=== PATIENT | male | born 1985 | race Caucasian/White ===

== ENCOUNTER 2018-01-11 11:52 | Emergency (ER) | payer BC, OTHER ==
[2018-01-11] MEDS ORDERED: ACETAMINOPHEN TAB 500 MG TAB PO STA (12:16)
[2018-01-11] MEDS ORDERED: IBUPROFEN 600 MG TAB PO STA (12:16)
[2018-01-11] MEDS ORDERED: SODIUM CHLORIDE 0.9% 1,000 ML IV ONE (12:16)
[2018-01-11] MEDS ORDERED: LEVOFLOXACIN 750MG-D5W PMX 750 MG in DEXTROSE/WATER 1 150ML.BAG IVPB STA (12:16)
--- NOTE | 2018-01-11 12:20 | ED ---
ENT HPI - General Chief complaint: ENT Stated complaint: rt ear pain Time Seen by Provider: 01/11/18 12:00 Source: patient, RN notes reviewed, old records reviewed Mode of arrival: ambulatory Limitations: no limitations - History of Present Illness Initial comments: 32-year-old male presents return to the chief complaint of some ear pain within the right ear. Patient reports he's had swelling and pain radiating from the ear.neck and jaw. Patient states that he has had fevers and chills. He reports he's not had any anti-inflammatory medication for pain. Patient states that he has had some drainage from the ear. He believes on he was outside working and had some debris go within the ear. Patient states that he try to clean this out with hydrogen peroxide. He states he is still is a pulse sleep. He woke up when later in his ear was swollen shut and cannot hear from it. - Related Data Previous Rx's Medication Instructions Recorded Acetaminophen Tab [Tylenol Tab] 650 mg PO Q6H #20 tablet 01/11/18 Ciprofloxacin-Dexameth [Ciprodex 4 drops RIGHT EAR BID #1 bottle 01/11/18 Otic Susp] Ibuprofen 600 mg PO TID #20 tablet 01/11/18 Levofloxacin [Levaquin] 500 mg PO DAILY #10 tab 01/11/18 Allergies Allergy/AdvReac Type Severity Reaction Status Date / Time No Known Allergies Allergy Verified 01/11/18 13:13 Review of Systems ROS Statement: Those systems with pertinent positive or pertinent negative responses have been documented in the HPI. ROS Other: All systems not noted in ROS Statement are negative. Past Medical History Past Medical History: No Reported History History of Any Multi-Drug Resistant Organisms: None Reported Past Surgical History: No Surgical Hx Reported Past Psychological History: No Psychological Hx Reported Smoking Status: Current every day smoker Past Alcohol Use History: Occasional Past Drug Use History: Marijuana General Exam - General Exam Comments Initial Comments: 32-year-old male. Alert and oriented. mild moderate discomfort. Limitations: no limitations General appearance: alert, in no apparent distress Head exam: Present: atraumatic, normocephalic, normal inspection Eye exam: Present: normal appearance, PERRL, EOMI. Absent: scleral icterus, conjunctival injection, periorbital swelling ENT exam: Present: mucous membranes moist. Absent: normal exam (Hunt has significant swelling and tenderness over the right auricle. Patient's ear canal is swollen with purulent drainage. Patient does have a peanut ear canal for drops to be instilled.) Neck exam: Present: normal inspection. Absent: tenderness, meningismus, lymphadenopathy Respiratory exam: Present: normal lung sounds bilaterally. Absent: respiratory distress, wheezes, rales, rhonchi, stridor Cardiovascular Exam: Present: regular rate, normal rhythm, normal heart sounds. Absent: systolic murmur, diastolic murmur, rubs, gallop, clicks GI/Abdominal exam: Present: soft, normal bowel sounds. Absent: distended, tenderness, guarding, rebound, rigid Extremities exam: Present: normal inspection, full ROM, normal capillary refill. Absent: tenderness, pedal edema, joint swelling, calf tenderness Back exam: Present: normal inspection Neurological exam: Present: alert, oriented X3, CN II-XII intact Psychiatric exam: Present: normal affect, normal mood Course Vital Signs 01/11/18 01/11/18 11:57 13:58 Temperature 98.5 F 98.6 F Pulse Rate 82 55 L Respiratory 18 18 Rate Blood Pressure 143/78 125/89 O2 Sat by Pulse 98 97 Oximetry Medical Decision Making - Medical Decision Making 32-year-old male presents today with chief complaint of significant right ear pain and swelling. Patient has evidence of significant otitis externa. He has swelling radiating towards the lower jaw. He did have a fever 101. We did proceed with doing blood work and give the Patient IV antibiotics of Levaquin. Patient has evidence of leukocytosis of 15,000. Given Motrin and Tylenol. He does report some relief of the symptoms after pain reliever. Patient does have a small ear canal that is patent enough for ear drops to be instilled. I discussed that we'll start the Patient on oral antibiotics as well as drops. I discussed return parameters. Patient agrees to treatment plan will comply. Discussed the importance of following up with ear flap binder. - Lab Data Result diagrams: 01/11/18 12:51 01/11/18 13:03 Lab Results 01/11/18 01/11/18 01/11/18 Range/Units 12:51 12:57 13:03 WBC 15.0 H (3.8-10.6) k/uL RBC 4.64 (4.30-5.90) m/uL Hgb 14.7 (13.0-17.5) gm/dL Hct 43.0 (39.0-53.0) % MCV 92.7 (80.0-100.0) fL MCH 31.8 (25.0-35.0) pg MCHC 34.3 (31.0-37.0) g/dL RDW 12.4 (11.5-15.5) % Plt Count 230 (150-450) k/uL Neutrophils % 82 % Lymphocytes % 9 % Monocytes % 6 % Eosinophils % 1 % Basophils % 0 % Neutrophils # 12.4 H (1.3-7.7) k/uL Lymphocytes # 1.4 (1.0-4.8) k/uL Monocytes # 1.0 (0-1.0) k/uL Eosinophils # 0.1 (0-0.7) k/uL Basophils # 0.0 (0-0.2) k/uL Sodium 136 L (137-145) mmol/L Potassium 4.9 (3.5-5.1) mmol/L Chloride 105 (98-107) mmol/L Carbon Dioxide 22 (22-30) mmol/L Anion Gap 9 mmol/L BUN 12 (9-20) mg/dL Creatinine 0.67 (0.66-1.25) mg/dL Est GFR (CKD-EPI)AfAm >90 (>60 ml/min/1.73 sqM) Est GFR (CKD-EPI)NonAf >90 (>60 ml/min/1.73 sqM) Glucose 104 H (74-99) mg/dL Plasma Lactic Acid [place] 1.1 (0.7-2.0) mmol/L Calcium 9.1 (8.4-10.2) mg/dL Total Bilirubin 0.3 (0.2-1.3) mg/dL AST 28 (17-59) U/L ALT 33 (21-72) U/L Alkaline Phosphatase 62 (38-126) U/L Total Protein 6.1 L (6.3-8.2) g/dL Albumin 3.8 (3.5-5.0) g/dL - Radiology Data Radiology results: report reviewed CT of the face is negative for any acute osseous lesion. There is chronic ethmoid old sinus mucosal disease noted. Disposition Clinical Impression: Otitis externa Disposition: HOME SELF-CARE Condition: Good Additional Instructions: Patient is to take the medications as prescribed. Follow-up promptly with ear flap binder. Return to the emergency department if any alarming signs or symptoms occur. Prescriptions: Acetaminophen Tab [Tylenol Tab] 650 mg PO Q6H #20 tablet Ciprofloxacin-Dexameth [Ciprodex Otic Susp] 4 drops RIGHT EAR BID #1 bottle Ibuprofen 600 mg PO TID #20 tablet Levofloxacin [Levaquin] 500 mg PO DAILY #10 tab Is patient prescribed a controlled substance at d/c from ED?: No Referrals: None,Stated [Primary Care Provider] - 1-2 days Willi Guan DO [Doctor of Osteopathic Medicine] - 1-2 days Time of Disposition: 15:09
[2018-01-11 13:24] LABS: Basophils % (A) 0 %; Eosinophils # (A) 0.1 k/uL (0-0.7); Eosinophils % (A) 1 %; HGB 14.7 gm/dL (13.0-17.5); Lymphocytes # (A) 1.4 k/uL (1.0-4.8); Lymphocytes % (A) 9 %; MCH 31.8 pg (25.0-35.0); MCHC 34.3 g/dL (31.0-37.0); MCV 92.7 fL (80.0-100.0); Mean Platelet Volume 7.3; Monocytes % (A) 6 %; Neutrophils # (A) 12.4 k/uL (1.3-7.7); Neutrophils % (A) 82 %; Platelet Count 230 k/uL (150-450); RBC 4.64 m/uL (4.30-5.90); RDW 12.4 % (11.5-15.5)
[2018-01-11 13:40] LABS: ALT 33 U/L (21-72); AST 28 U/L (17-59); Albumin 3.8 g/dL (3.5-5.0); Alkaline Phosphatase 62 U/L (38-126); Anion Gap 9 mmol/L; Blood Urea Nitrogen 12 mg/dL (9-20); Calcium 9.1 mg/dL (8.4-10.2); Carbon Dioxide 22 mmol/L (22-30); Chloride 105 mmol/L (98-107); Glucose 104 mg/dL (74-99); Potassium 4.9 mmol/L (3.5-5.1); Sodium 136 mmol/L (137-145); Total Bilirubin 0.3 mg/dL (0.2-1.3); Total Protein 6.1 g/dL (6.3-8.2)
[2018-01-11 13:59] VITALS: TEMP 98.6
--- NOTE | 2018-01-11 14:07 | CT ---
EXAMINATION TYPE: CT facial bones w con DATE OF EXAM: 01/11/2018 COMPARISON: None. HISTORY: Rt ear pain CT DLP: 391 mGycm Automated exposure control for dose reduction was used. CONTRAST: CT scan of the facial bones is performed with IV Contrast, patient injected with 100 mL of Isovue 300 . TECHNIQUE: CT scan of the sinuses is performed without contrast, axial images are obtained, coronal r eformatted images are also reviewed. FINDINGS: Visualized intracranial structures are unremarkable. There is mucoperiosteal thickening involving the ethmoidal sinuses. The remainder the paranasal sinus es and mastoids are clear. At the site of pain there is no soft tissue abnormality. There is no significant soft tissue swelling . No osseous abnormality is identified. The mandible is unremarkable. Zygomatic arches are intact. The pterygoid plates are intact. No nasal fracture is seen. The [place] of the orbit and maxillary sinuses are intact. IMPRESSION: 1. NO ACUTE OSSEOUS LESION. 2. CHRONIC ETHMOIDAL SINUS MUCOSAL DISEASE.
[2018-01-11] MEDS ORDERED: CIPROFLOXACIN-DEXAMETH 0.3-0.1% DROPS 7.5 ML BTL RIGHT EAR STA (14:52)
[2018-01-11 15:26] VITALS: BP 123/89; PULSE 68; RESP 16
== END 2018-01-11 15:24 | disposition home or self-care (01) ==
LOC: EC 11:52
DX: H60.91 Unspecified otitis externa, right ear (principal); M54.2 Cervicalgia; R68.84 Jaw pain; F17.200 Nicotine dependence, unspecified, uncomplicated
CPT/HCPCS: 36415; 80053; 83605; 85025; 87040; 70487; 99284; 96365; 96361; J1956; Q9967

== ENCOUNTER 2018-01-12 01:29 | Emergency (ER) | payer BC, OTHER ==
[2018-01-12 01:47] VITALS: BP 139/90; PULSE 60; RESP 16; TEMP 98.4
--- NOTE | 2018-01-12 01:52 | ED ---
ENT HPI - General Chief complaint: ENT Stated complaint: ear infection Time Seen by Provider: 01/12/18 01:51 Source: patient Mode of arrival: ambulatory Limitations: no limitations - History of Present Illness Initial comments: Neck is a 32-year-old male who was evaluated in our hospital yesterday for otitis externa, the patient was prescribed Cipro drops, Levaquin as well as Tylenol and Motrin. Patient went to a pharmacy but because he does not have any prescription drug coverage was unable to afford any of the medications. Patient reports he has persistent pain in his ear surgery return to the ER for reevaluation. - Related Data Previous Rx's Medication Instructions Recorded Acetaminophen Tab [Tylenol Tab] 650 mg PO Q6H #20 tablet 01/11/18 Ciprofloxacin-Dexameth [Ciprodex 4 drops RIGHT EAR BID #1 bottle 01/11/18 Otic Susp] Ibuprofen 600 mg PO TID #20 tablet 01/11/18 Levofloxacin [Levaquin] 500 mg PO DAILY #10 tab 01/11/18 Ciprofloxacin HCl [Cipro] 750 mg PO BID #14 tablet 01/12/18 Ciprofloxacin HCl [Cipro] 750 mg PO BID 7 Days #14 tablet 01/12/18 Allergies Allergy/AdvReac Type Severity Reaction Status Date / Time No Known Allergies Allergy Verified 01/12/18 01:47 Review of Systems ROS Statement: Those systems with pertinent positive or pertinent negative responses have been documented in the HPI. ROS Other: All systems not noted in ROS Statement are negative. Past Medical History Past Medical History: No Reported History History of Any Multi-Drug Resistant Organisms: None Reported Past Surgical History: No Surgical Hx Reported Past Psychological History: No Psychological Hx Reported Smoking Status: Current every day smoker Past Alcohol Use History: Occasional Past Drug Use History: Marijuana General Exam - General Exam Comments Initial Comments: Physical Exam GENERAL: Patient appears uncomfortable HENT: Normocephalic, Atraumatic. Erythema and swelling of the pinna of the right ear, Right ear canal edema, purulent discharge from ear canal EYES: PERRL, EOMI PULMONARY: Unlabored respirations. No audible rales rhonchi or wheezing was noted. CARDIOVASCULAR: There is a regular rate and rhythm without any murmurs gallops or rubs. ABDOMEN: Soft and nontender with normal bowel sounds. SKIN: Skin is clear with no lesions or rashes and otherwise unremarkable. : Deferred NEUROLOGIC: Patient is alert and oriented x3. Moving all extremities spontaneously MUSCULOSKELETAL: Normal extremities with adequate strength and full range of motion. No lower extremity swelling or edema. No calf tenderness. PSYCHIATRIC: Normal psychiatric evaluation. Limitations: no limitations Limitations: no limitations Course Vital Signs 01/12/18 01:44 Temperature 98.4 F Pulse Rate 60 Respiratory 16 Rate Blood Pressure 139/90 O2 Sat by Pulse 99 Oximetry Medical Decision Making - Medical Decision Making The patient was seen and evaluated, prescription drug options were reviewed. At this time I will give the patient Cipro drops here in the emergency department he can take that container home with him. In addition I will prescribe Cipro which was much more cost effective. Toradol and morphine were ordered for pain management. Return parameters were again discussed. Need for follow-up was discussed with the patient. Patient was discharged home in stable condition. Disposition Clinical Impression: Otitis externa Disposition: HOME SELF-CARE Instructions: Otitis Externa (ED) Prescriptions: Ciprofloxacin HCl [Cipro] 750 mg PO BID #14 tablet Is patient prescribed a controlled substance at d/c from ED?: No Referrals: None,Stated [Primary Care Provider] - 1-2 days
[2018-01-12] MEDS ORDERED: CIPROFLOXACIN-DEXAMETH 0.3-0.1% DROPS 7.5 ML BTL RIGHT EAR STA (02:03)
[2018-01-12] MEDS ORDERED: CIPROFLOXACIN HCL 250 MG TAB PO STA (02:14)
[2018-01-12] MEDS ORDERED: MORPHINE SULFATE 4 MG/ML SYRINGE IM STA (02:24)
[2018-01-12] MEDS ORDERED: KETOROLAC 30 MG/ML 1 ML VIAL IM STA (02:24)
== END 2018-01-12 02:48 | disposition home or self-care (01) ==
LOC: EC 01:29
DX: H60.91 Unspecified otitis externa, right ear (principal); F17.200 Nicotine dependence, unspecified, uncomplicated
CPT/HCPCS: 96372 ×2; 99283; J2270; J1885

== ENCOUNTER 2018-09-21 16:50 | Emergency (ER) | payer OTHER ==
[2018-09-21] MEDS ORDERED: KETOROLAC 30 MG/ML 1 ML VIAL IM STA (17:32)
--- NOTE | 2018-09-21 17:36 | ED ---
General Adult HPI - General Chief complaint: Urogenital Stated complaint: Groin pain Time Seen by Provider: 09/21/18 17:29 Source: patient, RN notes reviewed, old records reviewed Mode of arrival: ambulatory Limitations: no limitations - History of Present Illness Initial comments: 33-year-old male presenting with right testicle pain and scrotal pain. Patient's symptoms began yesterday evening around 9 or 10 PM. He denies any trauma. Denies any dysuria or hematuria. He has been having normal bowel movements. Pain is localized to the right testicle and right groin. No history of hernia. No history of testicular torsion. No chronic medical history. - Related Data Previous Rx's Medication Instructions Recorded Ibuprofen [Motrin] 600 mg PO Q8HR PRN #24 tab 09/21/18 Sulfamethox-Tmp 800-160Mg [Bactrim 1 tab PO Q12HR #28 tab 09/21/18 DS 800-160 mg] Allergies Allergy/AdvReac Type Severity Reaction Status Date / Time No Known Allergies Allergy Verified 09/21/18 17:28 Review of Systems ROS Statement: Those systems with pertinent positive or pertinent negative responses have been documented in the HPI. ROS Other: All systems not noted in ROS Statement are negative. Past Medical History Past Medical History: No Reported History History of Any Multi-Drug Resistant Organisms: None Reported Past Surgical History: No Surgical Hx Reported Past Psychological History: No Psychological Hx Reported Smoking Status: Current every day smoker Past Alcohol Use History: Occasional Past Drug Use History: Marijuana General Exam Limitations: no limitations General appearance: alert, in no apparent distress Head exam: Present: atraumatic, normocephalic Eye exam: Present: normal appearance, PERRL Neck exam: Present: normal inspection. Absent: tenderness, meningismus Respiratory exam: Present: normal lung sounds bilaterally. Absent: respiratory distress, wheezes Cardiovascular Exam: Present: regular rate, normal rhythm GI/Abdominal exam: Present: soft. Absent: distended, tenderness, guarding exam: Present: testicular tenderness, scrotal swelling, vertical testicular lie, circumcision. Absent: urethral discharge Extremities exam: Present: normal inspection, normal capillary refill. Absent: pedal edema Back exam: Present: normal inspection, full ROM. Absent: tenderness Neurological exam: Present: alert, oriented X3, CN II-XII intact. Absent: motor sensory deficit Psychiatric exam: Present: normal affect, normal mood Skin exam: Present: warm, dry, intact. Absent: cyanosis, diaphoretic Course Vital Signs 09/21/18 09/21/18 17:11 19:41 Temperature 98.2 F 98.5 F Pulse Rate 83 72 Respiratory 16 18 Rate Blood Pressure 124/82 138/86 O2 Sat by Pulse 97 97 Oximetry Medical Decision Making - Medical Decision Making 33-year-old male with right testicle pain, on exam patient has swollen right testicle tender to palpation. He has normal vertical lie, positive cremasteric reflex bilaterally. Ultrasound is obtained, there is concern for an anechoic lesion adjacent to the epididymis as well as hypoechoic lesion within the right testicle. No torsion. I discussed the ultrasound results with urology Dr. Kinney, he recommends close outpatient follow-up. Patient is given anti- inflammatories, he will follow-up with urology in 24-48 hours. - Lab Data Lab Results 09/21/18 Range/Units 17:52 Urine Color Yellow Urine Appearance Clear (Clear) Urine pH 6.5 (5.0-8.0) Ur Specific [place] 1.030 (1.001-1.035) Urine Protein Trace H (Negative) Urine Glucose (UA) Negative (Negative) Urine Ketones Negative (Negative) Urine Blood Negative (Negative) Urine Nitrite Negative (Negative) Urine Bilirubin Negative (Negative) Urine Urobilinogen 3.0 (<2.0) mg/dL Ur Leukocyte Esterase Negative (Negative) Disposition Clinical Impression: Orchitis and epididymitis Disposition: HOME SELF-CARE Condition: Good Instructions (If sedation given, give patient instructions): Orchitis (ED) Prescriptions: Sulfamethox-Tmp 800-160Mg [Bactrim DS 800-160 mg] 1 tab PO Q12HR #28 tab Ibuprofen [Motrin] 600 mg PO Q8HR PRN #24 tab PRN Reason: Pain Is patient prescribed a controlled substance at d/c from ED?: No Referrals: None,Stated [Primary Care Provider] - 1-2 days Faraz Kinney MD [STAFF PHYSICIAN] - 1-2 days Time of Disposition: 20:37
[2018-09-21 18:06] LABS: Appearance,Urine Clear (Clear); Bilirubin,Urine Negative (Negative); Blood,Urine Negative (Negative); Color,Urine Yellow; Glucose,Urine (UA) Negative (Negative); Ketones,Urine Negative (Negative); Leukocyte Esterase,Urine Negative (Negative); Nitrite,Urine Negative (Negative); PH, Urine 6.5 (5.0-8.0); Protein,Urine Trace (Negative)
--- NOTE | 2018-09-21 19:31 | US ---
EXAMINATION TYPE: US scrotum with doppler. Grayscale and color Doppler Duplex imaging performed of t he scrotum. DATE OF EXAM: 09/21/2018 COMPARISON: Scrotal Doppler ultrasound 04/14/2015 CLINICAL HISTORY: Pain. Pain right testicle x 1 day. EXAM MEASUREMENTS: TESTICLES: Right Testicle: 4.2 x 2.8 x 2.6 cm Left Testicle: 4.2 x 2.7 x 2.5 cm EPIDIDYMIS HEAD: Right Epididymis: 1.0 x 0.7 x 0.6 cm Left Epididymis: 1.0 x 1.2 x 0.6 cm Doppler performed to assess for testicular vascularity; good bilateral color flow and waveforms are s een. There is no evidence of testicular torsion. Presence of hydroceles: possible small hydrocele vs normal fluid medial to right testicle Presence of varicoceles: none seen Anechoic area with debris seen adjacent to left epididymal head measurin.7 x 0.7 x 0.6 cm. Heterogeneous, hypoechoic area seen within right testicle that has indistinct borders. No definite borders to measure. No definite Doppler hyperperfusion to the lesion. However, suggestion of increase d vascularity right testicle in comparison to left. This lesion was not visualized on the 04/14/2015 s crotal Doppler ultrasound examination. Segmental testicular infarction versus other differential enti ties can be further evaluated using one week follow-up testicular Doppler ultrasound. IMPRESSION: 1. NO DEFINITE ACUTE PROCESS. 2. HOWEVER, 7 MM MEAN DIAMETER HYPOECHOIC RIGHT TESTICULAR LESION , FOR WHICH UROLOGY CONSULTATION I S RECOMMENDED.
[2018-09-21 19:42] VITALS: BP 138/86; PULSE 72; RESP 18; TEMP 98.5
[2018-09-22 14:32] LABS: C. trachomatis,PCR Negative (Neg,Equiv); Chlamydia trachomatis Source Urine
[2018-09-22 14:36] LABS: N. gonorrhoeae,PCR Negative (Neg,Equiv); Neisseria Source Urine
== END 2018-09-21 20:49 | disposition home or self-care (01) ==
LOC: EC 16:50
DX: N45.3 Epididymo-orchitis (principal); F17.200 Nicotine dependence, unspecified, uncomplicated
CPT/HCPCS: 81003; 87491; 87591; 87086; 93975; 76870; 99284; 96372; J1885

== ENCOUNTER 2019-08-02 14:25 | Emergency (ER) | payer OTHER ==
[2019-08-02 16:35] LABS: Amphetamine Screen,Urine Detected (NotDetected); Barbiturate Screen,Urine Not Detected (NotDetected); Benzodiazepines Screen,Urine Not Detected (NotDetected); Cocaine Screen,Urine Detected (NotDetected); Methadone Screen, Urine Not Detected (NotDetected); Opiate Screen,Urine Not Detected (NotDetected); Oxycodone Screen, Urine Not Detected (NotDetected); Phencyclidine Screen,Urine Not Detected (NotDetected); Tricyclic Antidepressant,Urine Not Detected (NotDetected); Urn Cannabinoid Scrn Detected (NotDetected)
[2019-08-02 19:42] VITALS: RESP 16
--- NOTE | 2019-08-02 22:25 | ED ---
Psych HPI - General Chief Complaint: Psychiatric Symptoms Stated Complaint: Mental Health Time Seen by Provider: 08/02/19 14:30 Source: patient Mode of arrival: EMS - History of Present Illness Initial Comments: The patient is a 34-year-old male with no past medical history presents to the emergency department via EMS. The patient's parents reportedly called 911 after the patient was threatening to harm them as well as to harm himself. The patient denies having mental health history. He denies suicidal or homicidal ideations upon presentation to the emergency department. He reports that his parents have been acting "very suspicious" lately and he is unsure why they ca lled EMS. The patient denies history of ilicit drug use. Does admit to drinking alcohol today, stating that he had a "few beers and a couple shots". States that he drinks monthly and denies daily use. The remainder of HPI is limited as patient does not share much information - Related Data Previous Rx's Medication Instructions Recorded Ibuprofen [Motrin] 600 mg PO Q8HR PRN #24 tab 09/21/18 Sulfamethox-Tmp 800-160Mg [Bactrim 1 tab PO Q12HR #28 tab 09/21/18 DS 800-160 mg] Allergies Allergy/AdvReac Type Severity Reaction Status Date / Time No Known Allergies Allergy Verified 09/21/18 17:28 Review of Systems ROS Statement: Those systems with pertinent positive or pertinent negative responses have been documented in the HPI. ROS Other: All systems not noted in ROS Statement are negative. Past Medical History Past Medical History: No Reported History History of Any Multi-Drug Resistant Organisms: None Reported Past Surgical History: No Surgical Hx Reported Past Psychological History: No Psychological Hx Reported Smoking Status: Current every day smoker Past Alcohol Use History: Occasional Past Drug Use History: Marijuana General Exam General appearance: alert, in no apparent distress Head exam: Present: atraumatic, normocephalic, normal inspection Eye exam: Present: normal appearance, PERRL, EOMI. Absent: scleral icterus, conjunctival injection, periorbital swelling ENT exam: Present: normal exam, mucous membranes moist Neck exam: Present: normal inspection. Absent: tenderness, meningismus, lymphadenopathy Respiratory exam: Present: normal lung sounds bilaterally. Absent: respiratory distress, wheezes, rales, rhonchi, stridor Cardiovascular Exam: Present: normal rhythm, tachycardia, normal heart sounds. Absent: systolic murmur, diastolic murmur, rubs, gallop, clicks GI/Abdominal exam: Present: soft, normal bowel sounds. Absent: distended, tenderness, guarding, rebound, rigid Extremities exam: Present: normal inspection, full ROM, normal capillary refill. Absent: tenderness, pedal edema, joint swelling, calf tenderness Back exam: Present: normal inspection Neurological exam: Present: alert, oriented X3, CN II-XII intact Psychiatric exam: Present: flat affect Skin exam: Present: warm, dry, intact, normal color. Absent: rash Course Vital Signs 08/02/19 08/02/19 08/02/19 14:28 14:33 15:33 Temperature 98.7 F Pulse Rate 111 H Respiratory 18 20 20 Rate Blood Pressure 131/86 O2 Sat by Pulse 97 Oximetry 08/02/19 08/02/19 08/02/19 16:00 17:00 18:00 Temperature Pulse Rate 82 Respiratory 20 20 20 Rate Blood Pressure 113/72 O2 Sat by Pulse 97 Oximetry 08/02/19 08/02/19 08/03/19 19:08 19:41 01:49 Temperature 98.5 F 97.6 F Pulse Rate 82 69 Respiratory 20 16 16 Rate Blood Pressure 113/72 133/84 O2 Sat by Pulse 97 96 Oximetry Medical Decision Making - Medical Decision Making Upon arrival the patient is placed into room 9. A thorough history and physical exam is performed. I did review the petition that is on the chart. The patient does agree to a breathalyzer and patient's BAT level is 0.156. He'll be sober at 6:30 PM and will be evaluated by social professionals that time contact worker lithography did evaluate the patient and did agree that the patient would benefit from stool diagnosis treatment facility. The patient did provide a urine sample which was positive for amphetamines, methamphetamines, cocaine and marijuana. I did fill out a certain medication on the patient. He is currently awaiting placement - Lab Data Result diagrams: 08/02/19 23:45 08/02/19 23:45 Lab Results 08/02/19 08/02/19 08/02/19 Range/Units 16:00 23:45 23:45 WBC 8.2 (3.8-10.6) k/uL RBC 5.23 (4.30-5.90) m/uL Hgb 15.6 (13.0-17.5) gm/dL Hct 46.3 (39.0-53.0) % MCV 88.6 (80.0-100.0) fL MCH 29.8 (25.0-35.0) pg MCHC 33.6 (31.0-37.0) g/dL RDW 13.2 (11.5-15.5) % Plt Count 258 (150-450) k/uL Neutrophils % 55 % Lymphocytes % 31 % Monocytes % 8 % Eosinophils % 2 % Basophils % 2 % Neutrophils # 4.5 (1.3-7.7) k/uL Lymphocytes # 2.5 (1.0-4.8) k/uL Monocytes # 0.6 (0-1.0) k/uL Eosinophils # 0.2 (0-0.7) k/uL Basophils # 0.2 (0-0.2) k/uL Sodium 136 L (137-145) mmol/L Potassium 4.2 (3.5-5.1) mmol/L Chloride 101 (98-107) mmol/L Carbon Dioxide 29 (22-30) mmol/L Anion Gap 6 mmol/L BUN 14 (9-20) mg/dL Creatinine 0.68 (0.66-1.25) mg/dL Est GFR (CKD-EPI)AfAm >90 (>60 ml/min/1.73 sqM) Est GFR (CKD-EPI)NonAf >90 (>60 ml/min/1.73 sqM) Glucose 90 (74-99) mg/dL Calcium 8.8 (8.4-10.2) mg/dL Total Bilirubin 0.2 (0.2-1.3) mg/dL AST 46 (17-59) U/L ALT 27 (4-49) U/L Alkaline Phosphatase 71 (38-126) U/L Total Protein 6.1 L (6.3-8.2) g/dL Albumin 3.7 (3.5-5.0) g/dL Urine Opiates Screen Not Detected (NotDetected) Ur Oxycodone Screen Not Detected (NotDetected) Urine Methadone Screen Not Detected (NotDetected) Ur Propoxyphene Screen Not Detected (NotDetected) Ur Barbiturates Screen Not Detected (NotDetected) U Tricyclic Antidepress Not Detected (NotDetected) Ur Phencyclidine Scrn Not Detected (NotDetected) Ur Amphetamines Screen Detected H (NotDetected) U Methamphetamines Scrn Detected H (NotDetected) U Benzodiazepines Scrn Not Detected (NotDetected) Urine Cocaine Screen Detected H (NotDetected) U Marijuana (THC) Screen Detected H (NotDetected) Disposition Clinical Impression: Depression Disposition: OTHER INSTITUTION NOT DEFINED Condition: Stable Is patient prescribed a controlled substance at d/c from ED?: No Referrals: None,Stated [Primary Care Provider] - 1-2 days - Out of Hospital Transfer - Req. Specs Out of Hospital Transfer - Requested Specifics: Psychiatric Non-ICU ([place])
[2019-08-02 23:54] LABS: Basophils # (A) 0.2 k/uL (0-0.2); Basophils % (A) 2 %; Eosinophils # (A) 0.2 k/uL (0-0.7); Eosinophils % (A) 2 %; HCT 46.3 % (39.0-53.0); HGB 15.6 gm/dL (13.0-17.5); Lymphocytes # (A) 2.5 k/uL (1.0-4.8); Lymphocytes % (A) 31 %; MCH 29.8 pg (25.0-35.0); MCHC 33.6 g/dL (31.0-37.0); MCV 88.6 fL (80.0-100.0); Monocytes # (A) 0.6 k/uL (0-1.0); Monocytes % (A) 8 %; Neutrophils # (A) 4.5 k/uL (1.3-7.7); Neutrophils % (A) 55 %; Platelet Count 258 k/uL (150-450); RBC 5.23 m/uL (4.30-5.90); RDW 13.2 % (11.5-15.5); WBC 8.2 k/uL (3.8-10.6)
[2019-08-03 00:03] LABS: ALT 27 U/L (4-49); AST 46 U/L (17-59); African American GFR (CKD) >90 (>60 ml/min/1.73 sqM); Albumin 3.7 g/dL (3.5-5.0); Alkaline Phosphatase 71 U/L (38-126); Anion Gap 6 mmol/L; Blood Urea Nitrogen 14 mg/dL (9-20); Calcium 8.8 mg/dL (8.4-10.2); Carbon Dioxide 29 mmol/L (22-30); Chloride 101 mmol/L (98-107); Glucose 90 mg/dL (74-99); Non-African American GFR(CKD) >90 (>60 ml/min/1.73 sqM); Potassium 4.2 mmol/L (3.5-5.1); Sodium 136 mmol/L (137-145); Total Bilirubin 0.2 mg/dL (0.2-1.3); Total Protein 6.1 g/dL (6.3-8.2)
[2019-08-03 01:51] VITALS: BP 133/84; PULSE 69; TEMP 97.6
== END 2019-08-03 02:43 | disposition other institution (70) ==
LOC: EC 14:25
DX: F32.9 Major depressive disorder, single episode, unspecified (principal); R82.5 Elevated urine levels of drugs, medicaments and biological substances; R00.0 Tachycardia, unspecified; F17.200 Nicotine dependence, unspecified, uncomplicated
CPT/HCPCS: 36415; 80053; 80306; 82075; 85025; 99285

== ENCOUNTER 2020-11-23 09:57 | Emergency (ER) | payer OTHER ==
[2020-11-23 10:08] VITALS: BP 148/76; PULSE 82; RESP 20; TEMP 97.8
[2020-11-23] MEDS ORDERED: LIDOCAINE 5% PATCH TOPICAL STA (10:33)
[2020-11-23] MEDS ORDERED: KETOROLAC 15 MG/ML 1 ML VIAL IM STA (10:33)
[2020-11-23] MEDS ORDERED: CYCLOBENZAPRINE 10MG STARTER 3 TAB BTL PO STA (10:34)
[2020-11-23] MEDS ORDERED: CYCLOBENZAPRINE 10 MG TAB PO STA (10:34)
--- NOTE | 2020-11-23 10:39 | ED ---
Back Pain HPI - General Chief Complaint: Back Pain/Injury Stated Complaint: Pinched Sciatic Nerve Time Seen by Provider: 11/23/20 10:10 Source: patient Limitations: no limitations - History of Present Illness Initial Comments: 35-year-old male presenting to the emergency department with a chief complaint of back pain. Patient reports he was hauling a large log when he began to feel sudden onset of right-sided low back pain. Patient reports the pain is radiating along the posterior aspect of his right lower extremity. Statuses his typical sciatica symptoms. Has not seen any medical help for this prior to this. He denies any trauma to his back. Denies any saddle anesthesia, urinary or bowel incontinence. Denies taking medication to alleviate the symptoms. Pain is 7/10, sharp in nature. Exacerbated with left and right rotation. Alleviated at rest. - Related Data Previous Rx's Medication Instructions Recorded Ibuprofen [Motrin] 600 mg PO Q8HR PRN #24 tab 09/21/18 Sulfamethox-Tmp 800-160Mg [Bactrim 1 tab PO Q12HR #28 tab 09/21/18 DS 800-160 mg] Cyclobenzaprine [Flexeril] 10 mg PO TID PRN #15 tab 11/23/20 Allergies Allergy/AdvReac Type Severity Reaction Status Date / Time No Known Allergies Allergy Verified 11/23/20 10:08 Review of Systems ROS Statement: Those systems with pertinent positive or pertinent negative responses have been documented in the HPI. ROS Other: All systems not noted in ROS Statement are negative. Past Medical History Past Medical History: No Reported History History of Any Multi-Drug Resistant Organisms: None Reported Past Surgical History: No Surgical Hx Reported Past Psychological History: No Psychological Hx Reported Smoking Status: Current every day smoker Past Alcohol Use History: Occasional Past Drug Use History: Marijuana General Exam Limitations: no limitations General appearance: alert, in no apparent distress Head exam: Present: atraumatic, normocephalic, normal inspection Eye exam: Present: normal appearance, PERRL, EOMI ENT exam: Present: normal exam, normal oropharynx, mucous membranes moist Neck exam: Present: normal inspection, full ROM. Absent: tenderness, lymphadenopathy Respiratory exam: Present: normal lung sounds bilaterally. Absent: respiratory distress, wheezes, rales Cardiovascular Exam: Present: regular rate, normal rhythm, normal heart sounds. Absent: systolic murmur GI/Abdominal exam: Present: soft. Absent: distended, tenderness, guarding, rebound Extremities exam: Present: normal inspection, full ROM. Absent: tenderness Back exam: Present: normal inspection, full ROM, tenderness, paraspinal tenderness (Right-sided paraspinal tenderness), other (Positive leg raise test, right side.) Neurological exam: Present: alert, oriented X3 Psychiatric exam: Present: normal affect, normal mood Skin exam: Present: warm, dry, intact, normal color Course Vital Signs 11/23/20 10:06 Temperature 97.8 F Pulse Rate 82 Respiratory 20 Rate Blood Pressure 148/76 O2 Sat by Pulse 96 Oximetry Medical Decision Making - Medical Decision Making 35-year-old male presenting to the emergency department with a chief complaint of back pain. Acute on chronic back pain. Patient was given Toradol Flexeril and Lidoderm patch. Patient was given a prescription for Flexeril. Will give contact information for dentofacial orthopedics dentist. Return parameters were thoroughly discussed with patient was attending agreeable. No concern for cauda equina. Disposition Clinical Impression: Mechanical back pain Disposition: HOME SELF-CARE Condition: Stable Instructions (If sedation given, give patient instructions): Acute Low Back Pain (ED), Lumbar Radiculopathy (ED), Lower Back Exercises (ED) Additional Instructions: Please return to the Emergency Department if symptoms worsen or any other concerns. Prescriptions: Cyclobenzaprine [Flexeril] 10 mg PO TID PRN #15 tab PRN Reason: Muscle Spasm Is patient prescribed a controlled substance at d/c from ED?: No Referrals: None,Stated [Primary Care Provider] - 1-2 days Time of Disposition: 10:39
== END 2020-11-23 11:02 | disposition home or self-care (01) ==
LOC: EC 09:57
DX: M54.5 Low back pain (principal); F12.90 Cannabis use, unspecified, uncomplicated; F17.200 Nicotine dependence, unspecified, uncomplicated
CPT/HCPCS: 99283; 96372; J1885

== ENCOUNTER 2021-04-14 04:02 | Emergency (ER) | payer OTHER ==
[2021-04-14 04:29] VITALS: TEMP 98
--- NOTE | 2021-04-14 05:07 | ED ---
Back Pain HPI - General Chief Complaint: Back Pain/Injury Stated Complaint: Difficulty Walking Time Seen by Provider: 04/14/21 04:32 Source: patient Limitations: no limitations - Related Data Previous Rx's Medication Instructions Recorded Ibuprofen [Motrin] 600 mg PO Q8HR PRN #24 tab 09/21/18 Sulfamethox-Tmp 800-160Mg [Bactrim 1 tab PO Q12HR #28 tab 09/21/18 DS 800-160 mg] Cyclobenzaprine [Flexeril] 10 mg PO TID PRN #15 tab 11/23/20 Ibuprofen [Motrin] 600 mg PO Q8HR PRN #20 tab 04/14/21 Methocarbamol [Robaxin-750] 750 mg PO TID PRN #30 tablet 04/14/21 predniSONE [Deltasone] 20 mg PO BID #8 tab 04/14/21 Allergies Allergy/AdvReac Type Severity Reaction Status Date / Time No Known Allergies Allergy Verified 04/14/21 04:29 Review of Systems ROS Statement: Those systems with pertinent positive or pertinent negative responses have been documented in the HPI. ROS Other: All systems not noted in ROS Statement are negative. Past Medical History Past Medical History: No Reported History History of Any Multi-Drug Resistant Organisms: None Reported Past Surgical History: No Surgical Hx Reported Past Psychological History: No Psychological Hx Reported Smoking Status: Current every day smoker Past Alcohol Use History: Occasional Past Drug Use History: Marijuana General Exam Limitations: no limitations Course Vital Signs 04/14/21 04:27 Temperature 98.0 F Pulse Rate 71 Respiratory 20 Rate Blood Pressure 119/78 O2 Sat by Pulse 98 Oximetry Disposition Clinical Impression: Sciatica Disposition: HOME SELF-CARE Condition: Good Instructions (If sedation given, give patient instructions): Lumbar Radiculopathy (ED) Prescriptions: predniSONE [Deltasone] 20 mg PO BID #8 tab Ibuprofen [Motrin] 600 mg PO Q8HR PRN #20 tab PRN Reason: Pain Methocarbamol [Robaxin-750] 750 mg PO TID PRN #30 tablet PRN Reason: pain Is patient prescribed a controlled substance at d/c from ED?: No Referrals: None,Stated [Primary Care Provider] - 1-2 days Allen Muir DO [Doctor of Osteopathic Medicine] - 1-2 days
[2021-04-14] MEDS ORDERED: predniSONE 20 MG TAB PO STA (05:09)
[2021-04-14] MEDS ORDERED: IBUPROFEN 600 MG TAB PO STA (05:09)
[2021-04-14 05:35] VITALS: RESP 18
[2021-04-14 06:36] VITALS: BP 144/74; PULSE 82
== END 2021-04-14 06:54 | disposition home or self-care (01) ==
LOC: EC 04:02
DX: M54.30 Sciatica, unspecified side (principal); F17.200 Nicotine dependence, unspecified, uncomplicated; F12.90 Cannabis use, unspecified, uncomplicated; Z72.89 Other problems related to lifestyle
CPT/HCPCS: 99283; J7512

== ENCOUNTER 2021-05-03 19:20 | Emergency (ER) | payer OTHER ==
[2021-05-03 19:29] VITALS: RESP 16
--- NOTE | 2021-05-03 19:45 | ED ---
General Adult HPI - General Chief complaint: Recheck/Abnormal Lab/Rx Stated complaint: Hypothermia Time Seen by Provider: 05/03/21 19:25 Source: patient, EMS Mode of arrival: EMS - History of Present Illness Initial comments: This 36-year-old homeless male presents to the emergency department complaining of being cold after getting staying in his friend's trailer without heat for the last 3 days along with cough, congestion, runny nose 3 days. Patient states his fingers and toes are cold and had some mild pain. She states she has been homeless for a year but has been staying in his friend's trailer for the last few days. Patient denies any chest pain, shortness of breath, abdominal pain, bowel or bladder changes, headache, change in vision, drug or alcohol use, back pain. - Related Data Previous Rx's Medication Instructions Recorded Doxycycline [Vibramycin] 100 mg PO BID 1 Days #20 capsule 05/03/21 Allergies Allergy/AdvReac Type Severity Reaction Status Date / Time No Known Allergies Allergy Verified 05/03/21 19:46 Review of Systems ROS Statement: Those systems with pertinent positive or pertinent negative responses have been documented in the HPI. ROS Other: All systems not noted in ROS Statement are negative. Past Medical History Past Medical History: No Reported History History of Any Multi-Drug Resistant Organisms: None Reported Past Surgical History: No Surgical Hx Reported Past Psychological History: No Psychological Hx Reported Smoking Status: Current every day smoker Past Alcohol Use History: Occasional Past Drug Use History: Marijuana General Exam General appearance: alert, in no apparent distress Head exam: Present: atraumatic, normocephalic, normal inspection Eye exam: Present: PERRL, EOMI Pupils: Present: normal accommodation, other ENT exam: Present: normal exam, other (poor dentition) Neck exam: Present: full ROM Respiratory exam: Present: normal lung sounds bilaterally. Absent: respiratory distress, wheezes, rales, rhonchi, stridor Cardiovascular Exam: Present: regular rate, normal rhythm, normal heart sounds. Absent: systolic murmur, diastolic murmur, rubs, gallop, clicks GI/Abdominal exam: Present: soft, normal bowel sounds. Absent: distended, tenderness, guarding, rebound, rigid Extremities exam: Absent: other (Patient states his bilateral fingers and toes are cold. Patient has full sensation bilateral fingers and toes. All digits of fingers and toes with mild erythema, no blisters, and a palpation, present. Capillary refill present in all upper and lower extremity digits) Back exam: Absent: full ROM, tenderness, CVA tenderness (R), CVA tenderness (L) Neurological exam: Present: alert, normal gait Psychiatric exam: Present: normal affect, normal mood Skin exam: Present: warm, dry, intact, normal color. Absent: rash Course Vital Signs 05/03/21 19:26 Temperature 98.4 F Pulse Rate 77 Respiratory 16 Rate Blood Pressure 134/82 O2 Sat by Pulse 98 Oximetry Medical Decision Making - Medical Decision Making This 36 old male comes to emergency department stating "my body is cold and I'm homeless." Patient states he also is experiencing a cough, runny nose and congestion. Chest x-ray impression: Subtle scattered opacities which may represent an atypical pneumonia. Doxycycline given patient here and prescription written for home. The patient food and water, patient states he has warmed up and does feel better. COVID-19 negative. Patient informed to follow-up with primary care provider next 24-48 hours. Strict return precautions were discussed. Patient verbally agreed to plan. Patient sent home in stable condition. Patient was given homeless alf information in the area. Case discussed with my attending, . - Lab Data Lab Results 05/03/21 Range/Units 19:44 Coronavirus (PCR) Not Detected (Not Detectd) Disposition Clinical Impression: Upper respiratory infection, Atypical pneumonia Disposition: HOME SELF-CARE Condition: Stable Instructions (If sedation given, give patient instructions): Pneumonia (ED) Additional Instructions: Please return to the emergency department with any concerning, new, or worsening symptoms. Please follow-up with primary care provider next 24-48 hours. Please use information given for homeless shelters in the area. Prescriptions: Doxycycline [Vibramycin] 100 mg PO BID 1 Days #20 capsule Is patient prescribed a controlled substance at d/c from ED?: No Referrals: None,Stated [Primary Care Provider] - 1-2 days Charlie Romo [STAFF PHYSICIAN] - 1-2 days Time of Disposition: 20:50
--- NOTE | 2021-05-03 20:12 | XR ---
EXAMINATION TYPE: XR chest 2V DATE OF EXAM: 05/03/2021 7:57 PM COMPARISON:Chest radiographs from 07/15/2012 TECHNIQUE: Frontal and lateral views of the chest. CLINICAL INDICATION:Male, 36 years old with history of cough; FINDINGS: Lungs/Pleura: Scattered subtle reticular and hazy opacities. No evidence of pneumothorax, focal conso lidation or pleural effusion. Pulmonary vascularity: Unremarkable. Heart/mediastinum: Cardiomediastinal silhouette is unremarkable. Musculoskeletal:No acute osseous pathology. IMPRESSION: Subtle scattered opacities which may represent an atypical pneumonia. Correlate for covid 19.
[2021-05-03] MEDS ORDERED: DOXYCYCLINE 100 MG CAP PO STA (20:43)
[2021-05-03 21:34] VITALS: BP 117/76; PULSE 83; TEMP 98.2
== END 2021-05-03 21:33 | disposition home or self-care (01) ==
LOC: EC 19:20
DX: J06.9 Acute upper respiratory infection, unspecified (principal); J18.9 Pneumonia, unspecified organism; Z20.822 Contact with and (suspected) exposure to COVID-19; F17.200 Nicotine dependence, unspecified, uncomplicated; F12.90 Cannabis use, unspecified, uncomplicated
CPT/HCPCS: 71046; 87635; 99284

== ENCOUNTER 2023-09-02 09:08 | Emergency (ER) | payer OTHER ==
[2023-09-02 09:13] VITALS: RESP 20
--- NOTE | 2023-09-02 10:15 | ED ---
ENT HPI - General Chief complaint: ENT Stated complaint: poss something in L ear Time Seen by Provider: 09/02/23 09:24 Source: patient, RN notes reviewed Mode of arrival: ambulatory Limitations: no limitations - History of Present Illness Initial comments: 38-year-old male presents emergency department chief complaint of left ear pain. Patient states started 3 to 4 days ago states it started after sticking his finger deep into his ear states there is swelling, drainage. Denies any fevers or chills denies any pain behind his ear states that his muffled hearing - Related Data Allergies Allergy/AdvReac Type Severity Reaction Status Date / Time No Known Allergies Allergy Verified 09/02/23 09:13 Review of Systems ROS Statement: Those systems with pertinent positive or pertinent negative responses have been documented in the HPI. ROS Other: All systems not noted in ROS Statement are negative. Past Medical History Past Medical History: No Reported History History of Any Multi-Drug Resistant Organisms: None Reported Past Surgical History: No Surgical Hx Reported Past Psychological History: No Psychological Hx Reported Smoking Status: Current every day smoker Past Alcohol Use History: None Reported Past Drug Use History: Marijuana General Exam Limitations: no limitations General appearance: alert, in no apparent distress Head exam: Present: atraumatic, normocephalic, normal inspection Eye exam: Present: normal appearance, PERRL, EOMI. Absent: scleral icterus, conjunctival injection, periorbital swelling ENT exam: Present: normal oropharynx, mucous membranes moist, TM's normal bilaterally. Absent: normal exam, normal external ear exam (Left swelling canal erythema and purulent drainage) Neck exam: Present: normal inspection. Absent: tenderness, meningismus, lymphadenopathy Respiratory exam: Present: normal lung sounds bilaterally. Absent: respiratory distress, wheezes, rales, rhonchi, stridor Cardiovascular Exam: Present: regular rate, normal rhythm, normal heart sounds. Absent: systolic murmur, diastolic murmur, rubs, gallop, clicks Course Vital Signs 09/02/23 09:11 Temperature 98.1 F Pulse Rate 73 Respiratory 20 Rate Blood Pressure 143/89 O2 Sat by Pulse 99 Oximetry Medical Decision Making - Medical Decision Making Was pt. sent in by a medical professional or institution (, PA, IMPORT DISPATCHER, urgent care, hospital, or usp...) When possible be specific @ -No Did you speak to anyone other than the patient for history (EMS, parent, family, police, friend...)? What history was obtained from this source @ -No Did you review nursing and triage notes (agree or disagree)? Why? @ -I reviewed and agree with nursing and triage notes Were old charts reviewed (outside hosp., previous admission, EMS record, old EKG, old radiological studies, urgent care reports/EKG's, usp records)? Report findings @ -No old charts were reviewed Differential Diagnosis (chest pain, altered mental status, abdominal pain women, abdominal pain men, vaginal bleeding, weakness, fever, dyspnea, syncope, headache, dizziness, GI bleed, back pain, seizure, CVA, palpatations, mental health, musculoskeletal)? @ -Otitis media otitis externa COVID 19, RSV, influenza, pneumonia, acute bronchitis, URI, this list is not all inclusive EKG interpreted by me (3pts min.). @ -None X-rays interpreted by me (1pt min.). @ -None done CT interpreted by me (1pt min.). @ -None done U/S interpreted by me (1pt. min.). @ -None done What testing was considered but not performed or refused? (CT, X-rays, U/S, labs)? Why? @ -None What meds were considered but not given or refused? Why? @ -None Did you discuss the management of the patient with other professionals (professionals i.e. , PA, IMPORT DISPATCHER, lab, RT, psych nurse, social work case manager, cloth shader, teacher, psychological operations officer, residential case manager)? Give summary @ -No Was smoking cessation discussed for >3mins.? @ -No Was critical care preformed (if so, how long)? @ -No Were there social determinants of health that impacted care today? How? (Homelessness, low income, unemployed, alcoholism, drug addiction, transportation, low edu. Level, literacy, decrease access to med. care, snf, rehab)? @ -No Was there de-escalation of care discussed even if they declined (Discuss DNR or withdrawal of care, Hospice)? DNR status @ -No What co-morbidities impacted this encounter? (DM, HTN, Smoking, COPD, CAD, Cancer, CVA, ARF, Chemo, Hep., AIDS, mental health diagnosis, sleep apnea, morbid obesity)? @ -None Was patient admitted / discharged? Hospital course, mention meds given and route, prescriptions, significant lab abnormalities, going to OR and other pertinent info. @ -Discharged patient has otitis externa as started on Ciprodex eardrops will use drops as directed and follow-up in 24 to 48 hours. Undiagnosed new problem with uncertain prognosis? @ -No Drug Therapy requiring intensive monitoring for toxicity (Heparin, Nitro, Insulin, Cardizem)? @ -No Were any procedures done? @ -No Diagnosis/symptom? @ -Left otitis external Acute, or Chronic, or Acute on Chronic? @ -Acute Uncomplicated (without systemic symptoms) or Complicated (systemic symptoms)? @ -uncomplicated Side effects of treatment? @ -No Exacerbation, Progression, or Severe Exacerbation? @ -No Poses a threat to life or bodily function? How? (Chest pain, [place], [place], pneumonia, PE, COPD, DKA, ARF, appy, cholecystitis, CVA, Diverticulitis, Homicidal, Suicidal, threat to staff... and all critical care pts) @ -No Disposition Clinical Impression: Left otitis externa Disposition: HOME SELF-CARE Condition: Stable Instructions (If sedation given, give patient instructions): Swimmer's Ear (ED) Additional Instructions: Use Ciprodex eardrops twice daily 4 drops for 7 days. Please return to the Emergency Department if symptoms worsen or any other concerns. Is patient prescribed a controlled substance at d/c from ED?: No Referrals: None,Stated [Primary Care Provider] - 1-2 days Time of Disposition: 10:15
[2023-09-02] MEDS: CIPROFLOXACIN-DEXAMETH 0.3-0.1% DROPS 7.5 ML BTL LEFT EAR STA (10:37)
[2023-09-02 10:55] VITALS: BP 122/74; PULSE 70; TEMP 98
== END 2023-09-02 10:40 | disposition home or self-care (01) ==
LOC: MERGE 09:08 → EC 09:08
DX: H60.92 Unspecified otitis externa, left ear (principal); F17.200 Nicotine dependence, unspecified, uncomplicated
CPT/HCPCS: 99282

== ENCOUNTER 2023-09-24 06:41 | Emergency (ER) | payer OTHER ==
[2023-09-24 06:51] VITALS: RESP 18
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
--- NOTE | 2023-09-24 07:06 | XR ---
EXAMINATION TYPE: XR shoulder complete LT DATE OF EXAM: 09/24/2023 CLINICAL HISTORY: Pain TECHNIQUE: Three views of the left shoulder are obtained. COMPARISON: None. FINDINGS: There is no acute fracture/dislocation evident in the left shoulder. The acromioclavicula r and glenohumeral joint spaces appear within normal limits. The visualized ribs are intact and unre markable. Overlying clothing or blanket Material is present. IMPRESSION: As above.
[2023-09-24] MEDS: ACET/COD 300 MG/30 MG STARTER PACK 6 TAB BTL PO STA (07:27)
[2023-09-24 07:48] VITALS: BP 158/105; PULSE 55; TEMP 97.8
== END 2023-09-24 07:48 | disposition home or self-care (01) ==
LOC: EC 06:41
DX: S43.102A Unspecified dislocation of left acromioclavicular joint, initial encounter (principal); F17.200 Nicotine dependence, unspecified, uncomplicated; V18.4XXA Pedal cycle driver injured in noncollision transport accident in traffic accident, initial encounter; Y92.481 Parking lot as the place of occurrence of the external cause; Y93.55 Activity, bike riding
CPT/HCPCS: 99284